=== PATIENT | female | born 1970 | race Caucasian/White ===

== ENCOUNTER 2020-09-16 15:18 | Emergency (ER) | payer BC, OTHER ==
[~2020-09-16] VITALS: Ht 162.5 cm; Wt 83.4 kg
[2020-09-16] MEDS ORDERED: HYDROcodone/APAP 5 MG/325 MG (LORTAB) TAB PO ONE (15:30)
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
[2020-09-16] MEDS ORDERED: ACHD5005 PO (17:26)
[2020-09-16] MEDS ORDERED: RX-HYDROCODONE/APAP 5/325 MG #4 TAB PK PO PRN (17:30)
[2020-09-16 17:50] VITALS: BP 158/85
== END 2020-09-16 17:50 | disposition home or self-care (01) ==
LOC: ER 15:28
DX: S82.51XA Displaced fracture of medial malleolus of right tibia, initial encounter for closed fracture (principal); V89.2XXA Person injured in unspecified motor-vehicle accident, traffic, initial encounter
CPT/HCPCS: 29515; 71101; 73610

== ENCOUNTER → 2020-09-20 | Outpatient (CLI) | payer BC ==
[~2020-09-20] MED LIST: ACHD5005 PO
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
== END ==
LOC: ORTHO 10:42
PROVIDERS: ATTEND Orthopaedic Surgery
DX: S82.54XD Nondisplaced fracture of medial malleolus of right tibia, subsequent encounter for closed fracture with routine healing (principal); M47.812 Spondylosis without myelopathy or radiculopathy, cervical region; Z98.1 Arthrodesis status; V89.2XXD Person injured in unspecified motor-vehicle accident, traffic, subsequent encounter
CPT/HCPCS: 72040; 73630

== ENCOUNTER → 2020-09-28 | Outpatient (CLI) | payer BC ==
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
== END ==
LOC: RAD 09:38
PROVIDERS: ATTEND Orthopaedic Surgery
DX: M47.812 Spondylosis without myelopathy or radiculopathy, cervical region (principal); Z98.1 Arthrodesis status; V89.2XXA Person injured in unspecified motor-vehicle accident, traffic, initial encounter
CPT/HCPCS: 72125

== ENCOUNTER → 2020-10-02 | Outpatient (CLI) | payer BC ==
--- NOTE | 2020-10-02 10:34 | Diagnostic Imaging Report ---
Right ankle at 10:00. Indication: Fracture, ankle pain 3 views were obtained. The prior exam of 09/16/2020 noted a mildly displaced fracture extending obliquely through the medial malleolus of the distal tibia. That injury is again evident on this study although the fracture line is less conspicuous. There does appear to be some healing callus formation present. The fracture fragments remain essentially nondisplaced. There is also a small 3 mm calcific density interposed between the lateral malleolus and lateral aspect of the talus. In retrospect this was present on the prior exam. This could represent a small avulsion fracture although the age of this injury is indeterminate. No other fracture or acute bony abnormality is appreciated. Ankle mortise is not widened and the talar dome is smooth. There is soft tissue edema about the medial aspect of the ankle joint. Impression: 1. There has been healing of the fracture involving the medial malleolus seen previously, however the fracture line is still clearly evident. 2. The small calcific density interposed between the lateral malleolus and the lateral aspect of the talus may represent an avulsion fracture. The age of this injury however is indeterminate. 3. There is no acute bony abnormality noted. Dictated by: Dictated on workstation # [id number]
== END ==
LOC: ORTHO 09:31
PROVIDERS: ATTEND Orthopaedic Surgery
DX: S82.54XD Nondisplaced fracture of medial malleolus of right tibia, subsequent encounter for closed fracture with routine healing (principal)
CPT/HCPCS: 73610

== ENCOUNTER → 2020-10-16 | Outpatient (CLI) | payer BC ==
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
== END ==
LOC: ORTHO 09:48
PROVIDERS: ATTEND Orthopaedic Surgery
DX: S82.54XD Nondisplaced fracture of medial malleolus of right tibia, subsequent encounter for closed fracture with routine healing (principal); X58.XXXD Exposure to other specified factors, subsequent encounter
CPT/HCPCS: 73610

== ENCOUNTER → 2020-11-01 | Outpatient (CLI) | payer BC ==
--- NOTE | 2020-11-02 16:58 | Diagnostic Imaging Report ---
EXAMINATION: Right ankle at 1036 AM INDICATION: Follow-up fracture Three views were obtained. The previous exam of 10/16/2020 did note a stable nondisplaced fracture of the medial malleolus of the distal tibia. That finding is again evident on this study and essentially no different. There is some increased density in this area indicating healing response. There is no other fracture or acute bony abnormality identified. The ankle mortise is not widened and the talar dome is smooth. There does seem to be mild soft tissue edema over the medial malleolus. IMPRESSION: 1. There is a healing nondisplaced fracture of the medial malleolus of the distal tibia. The fracture seems stable when compared to the prior exam. 2. There is no acute bony abnormality noted. Dictated by: Dictated on workstation # [id number]
== END ==
LOC: ORTHO 10:23
PROVIDERS: ATTEND Orthopaedic Surgery
DX: S82.54XD Nondisplaced fracture of medial malleolus of right tibia, subsequent encounter for closed fracture with routine healing (principal); X58.XXXD Exposure to other specified factors, subsequent encounter
CPT/HCPCS: 73610

== ENCOUNTER → 2020-11-22 | Outpatient (CLI) | payer BC | LOC: ORTHO 10:28 | PROVIDERS: ATTEND Orthopaedic Surgery | DX: S82.54XD Nondisplaced fracture of medial malleolus of right tibia, subsequent encounter for closed fracture with routine healing (principal) ==

== ENCOUNTER → 2020-12-13 | Outpatient (CLI) | payer BC | LOC: ORTHO 09:08 | PROVIDERS: ATTEND Orthopaedic Surgery | DX: S82.51XA Displaced fracture of medial malleolus of right tibia, initial encounter for closed fracture (principal); X58.XXXA Exposure to other specified factors, initial encounter ==

== ENCOUNTER → 2021-01-03 | Outpatient (CLI) | payer BC | LOC: ORTHO 09:08 | PROVIDERS: ATTEND Orthopaedic Surgery | DX: S82.51XA Displaced fracture of medial malleolus of right tibia, initial encounter for closed fracture (principal); X58.XXXA Exposure to other specified factors, initial encounter ==

== ENCOUNTER → 2021-01-24 | Outpatient (CLI) | payer BC | LOC: ORTHO 09:08 | PROVIDERS: ATTEND Orthopaedic Surgery | DX: S82.51XD Displaced fracture of medial malleolus of right tibia, subsequent encounter for closed fracture with routine healing (principal); X58.XXXD Exposure to other specified factors, subsequent encounter ==

== ENCOUNTER 2021-02-06 08:12 | Outpatient (RCR) | payer BC | END 2021-02-06 12:27 | disposition home or self-care (01) | PROVIDERS: ATTEND Orthopaedic Surgery | DX: S82.54XA Nondisplaced fracture of medial malleolus of right tibia, initial encounter for closed fracture (principal); V89.2XXA Person injured in unspecified motor-vehicle accident, traffic, initial encounter; Z90.710 Acquired absence of both cervix and uterus; Z98.1 Arthrodesis status ==